=== PATIENT | male | born 2000 | race African-American/Black ===

== ENCOUNTER 2020-06-27 14:35 | Emergency (ER) | payer BC ==
--- NOTE | 2020-06-27 16:46 | RAD ---
LEFT SHOULDER TWO VIEWS: History: Left shoulder pain for the last month without known injury. FINDINGS/IMPRESSION: No fracture, dislocation, or other significant acute osseous process. POS: RRE
== END 2020-06-27 17:36 | disposition home or self-care (01) ==
LOC: ERS 14:35
DX: M25.512 Pain in left shoulder (principal)
CPT/HCPCS: 99281

== ENCOUNTER 2020-10-18 07:59 | Emergency (ER) | payer BC ==
[2020-10-18] MEDS ORDERED: Azithromycin 250 MG TAB ONE (08:51)
[2020-10-18] MEDS ORDERED: cefTRIAXone\\ROCEPHIN 500 MG VIAL ONE (08:51)
[2020-10-18] MEDS ORDERED: Lidocaine 1% PF 5 ML VIAL ONE (08:51)
== END 2020-10-18 09:17 | disposition home or self-care (01) ==
LOC: ERS 07:59
DX: Z20.2 Contact with and (suspected) exposure to infections with a predominantly sexual mode of transmission (principal)
CPT/HCPCS: 96372; 99283; J0696

== ENCOUNTER 2021-12-18 12:53 | Emergency (ER) | payer BC ==
[2021-12-18] MEDS ORDERED: cefTRIAXone\\ROCEPHIN 500 MG VIAL ONE (13:53)
[2021-12-18] MEDS ORDERED: Lidocaine 1% PF 5 ML VIAL ONE (13:53)
== END 2021-12-18 14:10 | disposition home or self-care (01) ==
LOC: ERS 12:53
DX: A64 Unspecified sexually transmitted disease (principal)
CPT/HCPCS: 96372; 99283; J0696

== ENCOUNTER 2025-05-22 06:30 | Emergency (ER) | payer BC ==
[2025-05-22 23:52] LABS: Chlam.trachomatis by PCR,Urine DETECTED (NotDetected); GC N.gonorrhoeae PCR,UrineVOID Not Detected (NotDetected)
== END 2025-05-22 08:32 | disposition home or self-care (01) ==
LOC: ERS 06:30
DX: Z20.2 Contact with and (suspected) exposure to infections with a predominantly sexual mode of transmission (principal)
CPT/HCPCS: 87491; 87591; 99283